=== PATIENT | female | born 1950 | race Caucasian/White ===

== ENCOUNTER → 2022-11-27 | Day surgery (SDC) | payer MEDICARE | END | disposition home or self-care (01) | LOC: BICULT 12:22 | PROC: 0HBU3ZX Excision of Left Breast, Percutaneous Approach, Diagnostic (ICD-10-PCS; principal; 2022-11-27) | DX: C50.812 Malignant neoplasm of overlapping sites of left female breast (principal); Z17.1 Estrogen receptor negative status [ER-] | CPT/HCPCS: 19083; 88305; 88341; 88342 ==